=== PATIENT | male | born 1940 | race Caucasian/White ===

== ENCOUNTER 2017-02-18 19:22 | Emergency (ER) | payer MEDICARE, OTHER ==
[~2017-02-18] VITALS: Ht 172.7 cm; Wt 76.7 kg
--- NOTE | 2017-02-18 19:30 | NUR ---
77 yo male bb ra s/p glf. pt admits to alcohol drinking, states he fell over and hurt his left fa. pt assisted to er bed, skin warm and dry, rr even and unlabored. pt placed on telemetry monitor. left fa is wrapped by ems, will conitnue to monitor.
--- NOTE | 2017-02-18 19:35 | NUR ---
md Singh at bed side for eval
[2017-02-18 19:57] LABS: INR 0.98 (0.87-1.13); PROTHROMBIN TIME 10.2 SECS (9.5-12.7)
[2017-02-18] MEDS ORDERED: TDAP [DIPH/PERTUSSIS/TET] 0.5 ML VIAL IM ONE ×2 (19:57→20:00)
[2017-02-18] MEDS ORDERED: LIDOCAINE 1%-EPI 1:100,000 50 ML VIAL IJ ONE (20:00)
--- NOTE | 2017-02-18 20:09 | NUR ---
PT RETURNED FROM CT. PT REC'D TETANUS.
--- NOTE | 2017-02-18 20:11 | NUR ---
DR. HARRIS AND YADY, EMT ARE AT THE BEDSIDE SUTURING LACERATION
[2017-02-18 20:42] VITALS: BP 130/59
--- NOTE | 2017-02-18 20:44 | NUR ---
Patient discharged to home in stable condition. Written and verbal after care instructions given. Patient verbalizes understanding of instruction. pt ambulatory with a steady gait VITAL SIGNS WITHIN NORMAL LIMITS.
== END 2017-02-18 20:43 | disposition home or self-care (01) ==
LOC: ER 19:24
DX: S51.812A Laceration without foreign body of left forearm, initial encounter (principal); R51 Headache; Y99.8 Other external cause status; F10.129 Alcohol abuse with intoxication, unspecified; W01.0XXA Fall on same level from slipping, tripping and stumbling without subsequent striking against object, initial encounter; Y93.89 Activity, other specified; Y92.89 Other specified places as the place of occurrence of the external cause
CPT/HCPCS: 36415; 70450-TC; 72125-TC; 73090-TC; 85730-TC; 90715; A4606; A6402; J3490; Z7610

== ENCOUNTER 2018-03-20 05:34 | Emergency (ER) | payer BC, MEDICARE, OTHER ==
[~2018-03-20] VITALS: Ht 172.7 cm; Wt 72.6 kg
--- NOTE | 2018-03-20 05:50 | NUR ---
PT BBRA FROM HOME C/O OF FEELING DIZZY. PT STATES HE HAS BEEN HAVING INTERMITTENT DIZZINESS EVER SINCE HIS SURGERY 3 MONTHS AGO. PT IS AAOX4. -KO. +N/ -V/D. RESP EVEN AND UNLABORED. NO S.S OF ACUTE DISTRESS NOTED. VSS. SKIN WARM AND DRY TO TOUCH. AWAITING MD FOR EVAL.
[2018-03-20 06:49] LABS: BASOPHILS % (AUTO) 0.3 % (0.0-2.0); EOSINOPHILS % (AUTO) 1.5 % (0.0-6.0); HEMATOCRIT 35 % (39-51); HEMOGLOBIN 12.2 g/dL (13.5-17.5); LYMPHOCYTES # (AUTO) 0.8 /CMM (0.8-4.8); MEAN CORPUSCULAR HGB CONC 35 g/dl (31.0-36.0); MEAN CORPUSCULAR VOLUME 86 fL (80-96); MONOCYTES # (AUTO) 0.4 /CMM (0.1-1.30); NEUTROPHILS # (AUTO) 3.6 /CMM (1.8-8.9); NEUTROPHILS % (AUTO) 73.2 % (43.0-81.0); PLATELET COUNT (AUTO) 191 /CMM (150-450); RDW COEFFICIENT OF VARIATION 15.6 (11.5-15.0); RED BLOOD CELL COUNT(AUTO) 4.14 MIL/uL (4.5-6.0); WHITE BLOOD COUNT (AUTO) 4.9 K/uL (4.3-11.0)
[2018-03-20 06:59] LABS: CALCIUM, SERUM 8.4 mg/dL (8.5-10.1); CARBON DIOXIDE 27 mmol/L (21-32); CHLORIDE 101 mmol/L (98-107); CREATININE 0.9 mg/dL (0.6-1.3); GLUCOSE 98 mg/dL (74-106); POTASSIUM 4.4 mmol/L (3.5-5.1); SODIUM SERUM 132 mmol/L (136-145); UREA NITROGEN, BLOOD 19 mg/dL (7-18)
--- NOTE | 2018-03-20 07:05 | NUR ---
REPORT GIVEN TO ELROY CABRERA FOR JUSTICE.
--- NOTE | 2018-03-20 07:06 | NUR ---
RECEIVED REPORT FOR JUSTICE.
[2018-03-20 07:08] LABS: TROPONIN I < 0.017 ng/mL (0.00-0.056)
[2018-03-20 08:43] VITALS: BP 145/82
--- NOTE | 2018-03-20 08:44 | NUR ---
IV removed. Catheter intact and site benign. Pressure and 4x4 applied to site. No bleeding noted.Patient discharged to home in stable condition. Written and verbal after care instructions given. Patient verbalizes understanding of instruction.
== END 2018-03-20 08:44 | disposition home or self-care (01) ==
LOC: ER 05:36
DX: R42 Dizziness and giddiness (principal); R79.1 Abnormal coagulation profile; I10 Essential (primary) hypertension; I25.10 Atherosclerotic heart disease of native coronary artery without angina pectoris; Z95.1 Presence of aortocoronary bypass graft; Z95.2 Presence of prosthetic heart valve
CPT/HCPCS: 36415; 71045; 80048; 84484; 85025; 85730; 93005; 99285; A4606; A6402 ×2; Z7610